=== PATIENT | female | born 1955 | race Asian ===

== ENCOUNTER 2018-03-17 17:33 | Emergency (ER) | END 2018-03-17 22:32 | disposition home or self-care (01) ==

== ENCOUNTER 2019-01-27 08:33 | Emergency (ER) | payer BC ==
[~2019-01-27] VITALS: Ht 152.4 cm; Wt 76.4 kg
[~2019-01-27 08:33] MED LIST: CIPR-193 PO; HYDR-4011 PO; ONDA4TAB8 PO; TAMS-14 PO
[2019-01-27 08:37] VITALS: Ht 152.4 cm; Wt 76.4 kg
[2019-01-27] MEDS ORDERED: ONDANSETRON 4 MG INJ IV STA (08:45)
[2019-01-27] MEDS ORDERED: KETOROLAC 30 MG INJ IV STA (08:45)
[2019-01-27] MEDS ORDERED: morphine 2 MG INJ IV STA (09:40)
[2019-01-27 10:04] VITALS: BP 142/60; PULSE 62; RESP 18
[2019-01-27] MEDS ORDERED: ACET1TAB40 PO (10:04)
--- NOTE | 2019-01-27 10:04 | ERD ---
ER Documentation Chief Complaint Chief Complaint right flank pain sicne 3 am today HPI This is a 63-year-old female with a history of hypertension, diabetes, and previous kidney stones who presents to the ER for evaluation of right-sided flank pain. The patient states that her flank pain started at 3 in the morning and woke up from sleep. She describes as a sharp pain located to the right flank with mild radiation to the groin. She does state that she has noticed her urine has become darker. She does state that she was diagnosed with a kidney stone last year and does have an upcoming appointment with her urologist Dr. Elvira watkins. She states that she saw Dr. Leung previously and he sent her to a seafood packer to get a cardiac clearance for lithotripsy however she states that she has not had follow-up with a urologist since getting cardiac clearance. The patient has been taking Tylenol for her pain without relief and came to the ER today for evaluation. She does have mild associated nausea but denies any fevers chills or vomiting ROS All systems reviewed and are negative except as per history of present illness. Medications Home Meds Active Scripts Tamsulosin Hcl* (Flomax*) 0.4 Mg Cap.er.24h, 0.4 MG PO BID for 5 Days, #10 CAP Prov:SACHA GALAVIZ MD 03/17/18 Ciprofloxacin Hcl* (Ciprofloxacin Hcl*) 250 Mg Tablet, 250 MG PO BID, #14 TAB Prov:SACHA GALAVIZ MD 03/17/18 Ondansetron Hcl* (Zofran*) 4 Mg Tablet, 4 MG PO Q8H PRN for NAUSEA AND/OR VOMITING, #15 TAB Prov:SACHA GALAVIZ MD 03/17/18 Hydrocodone/Acetaminophen ([place] 5-325 Tablet) 1 Each Tablet, 1 TAB PO Q8 PRN for PAIN, #20 TAB Prov:SACHA GALAVIZ MD 03/17/18 Allergies Allergies: Coded Allergies: No Known Drug Allergy (Verified Allergy, Unknown, 07/01/07) PMhx/Soc History of Surgery: Yes (cardiac stent placement) Anesthesia Reaction: No Hx Neurological Disorder: No Hx Respiratory Disorders: No Hx Cardiac Disorders: Yes (CAD) Hx Psychiatric Problems: No Hx Alcohol Use: No Hx Substance Use: No Hx Tobacco Use: No Smoking Status: Never smoker Physical Exam Vitals Vital Signs Date Temp Pulse Resp B/P (MAP) Pulse Ox O2 O2 Flow FiO2 Time Delivery Rate 01/27/19 67 21 21 Room Air 09:49 01/27/19 98.1 64 18 206/79 99 08:37 (121) Physical Exam INITIAL VITAL SIGNS: Reviewed by me GENERAL: The patient is well developed, mild distress HEENT: Pupils equal, round, and reactive to light. EOMI. There is no scleral icterus. NECK: C-spine is soft and supple, there is no meningismus. There is no cervical lymphadenopathy. LUNGS: Clear to auscultation bilaterally. There are no rales, wheezes or rhonchi. HEART: Regular rate and rhythm, no murmurs, clicks, rubs or gallops. ABDOMEN: Right-sided CVAT, soft, non-tender, non-distended. There are bowel thuy nds in all four quadrants. No rebound or guarding. EXTREMITIES: There is no peripheral cyanosis or edema. No focal swelling or erythema. NEUROLOGICAL: The patient moves all four extremities with 5/5 strength. Cranial nerves II - XII are intact. Normal gait. Alert and oriented SKIN: There is no apparent rash or petechiae. HEME/LYMPHATIC: There is no evidence of excessive bruising or lymphedema. PSYCHIATRIC: The patient does not appear anxious or depressed. Result Diagram: 01/27/1914 01/27/19913 Results 24 hrs Laboratory Tests Test 01/27/19 09:14 White Blood Count 9.3 10^3/ul Red Blood Count 3.99 10^6/ul Hemoglobin 11.0 g/dl Hematocrit 35.2 % Mean Corpuscular Volume 88.2 fl Mean Corpuscular Hemoglobin 27.6 pg Mean Corpuscular Hemoglobin Concent 31.3 g/dl Red Cell Distribution Width 14.0 % Platelet Count 225 10^3/UL Mean Platelet Volume 11.0 fl Immature Granulocytes % 1.200 % Neutrophils % 75.2 % Lymphocytes % 17.5 % Monocytes % 5.4 % Eosinophils % 0.3 % Basophils % 0.4 % Nucleated Red Blood Cells % 0.0 /100WBC Immature Granulocytes # 0.110 10^3/ul Neutrophils # 7.0 10^3/ul Lymphocytes # 1.6 10^3/ul Monocytes # 0.5 10^3/ul Eosinophils # 0.0 10^3/ul Basophils # 0.0 10^3/ul Nucleated Red Blood Cells # 0.0 10^3/ul Urine Color YELLOW Urine Clarity SLIGHTLY CLOUDY Urine pH 5.0 Urine Specific [place] 1.016 Urine Ketones TRACE mg/dL Urine Nitrite NEGATIVE mg/dL Urine Bilirubin NEGATIVE mg/dL Urine Urobilinogen NEGATIVE mg/dL Urine Leukocyte Esterase NEGATIVE Reyna/ul Urine Microscopic RBC > 182 /HPF Urine Microscopic WBC 6 /HPF Urine Hemoglobin 3+ mg/dL Urine Glucose 3+ mg/dL Urine Total Protein 1+ mg/dl Sodium Level 137 mmol/L Potassium Level 4.2 mmol/L Chloride Level 99 mmol/L Carbon Dioxide Level 24 mmol/L Anion Gap 14 Blood Urea Nitrogen 15 mg/dl Creatinine 0.90 mg/dl Est Glomerular Filtrat Rate mL/min > 60 mL/min Glucose Level 330 mg/dl Calcium Level 9.3 mg/dl Total Bilirubin 1.0 mg/dl Direct Bilirubin 0.00 mg/dl Indirect Bilirubin 1.0 mg/dl Aspartate Amino Transf (AST/SGOT) 45 IU/L Alanine Aminotransferase (ALT/SGPT) 53 IU/L Alkaline Phosphatase 120 IU/L Total Protein 8.5 g/dl Albumin 4.6 g/dl Globulin 3.90 g/dl Albumin/Globulin Ratio 1.17 Lipase 426 U/L Current Medications Medications Dose Sig/[place] Start Time Status Last (Trade) Ordered Route PRN Stop Time Admin Dose Reason Admin Ketorolac 30 mg ONCE STAT 01/27/19 DC 01/27/19 Tromethamine IV 08:45 09:11 (Toradol) 01/27/19 08:48 Ondansetron 4 mg ONCE STAT 01/27/19 DC 01/27/19 HCl (Zofran IV 08:45 09:11 Inj) 01/27/19 08:48 Morphine 2 mg ONCE STAT 01/27/19 DC 01/27/19 Sulfate IV 09:40 09:47 (morphine) 01/27/19 09:44 Procedures/MDM CT abdomen pelvis without: 1. Moderate right-sided hydroureteronephrosis with a 7 x 5 mm calculus within the right side of the bladder just beyond the ureterovesical junction region presumably representing a recently passed stone. Also noted is a large 14 x 10 mm right renal pelvis calculus which appears to be a nonobstructing. Clinical correlation is necessary. 2. Punctate nonobstructing left lower pole renal calculus. 3. No CT evidence for appendicitis. 4. Extensive coronary artery calcifications. 5. Degenerative changes within the spine. This 63-year-old female presents to the ER for evaluation of right flank pain. She does have a history of kidney stones on the right. She does have a urologist Dr. Leung who she is scheduled to follow-up with next week. On my exam the patient was afebrile however she did appear to be in mild distress. The patient did have right-sided CVAT. The patient was given IV Toradol, IV fluids, Zofran. The patient underwent CT of the abdomen pelvis which does show a large 7 mm stone which is recently passed into the bladder. I do feel that this was the cause of this patient's pain. The patient does states she is feeling better after receiving Toradol however she said her pain had not com pletely resolved. The patient was given 2 mg of IV morphine as well. Her lab work does not reveal any kidney failure, she has no leukocytosis. Urinalysis does reveal hematuria but no significant signs of infection. I have attempted to contact the patient's urologist Dr. Leung and have called the office multiple times with no response. The patient will be discharged at this time with a prescription for Tylenol with codeine for breakthrough pain. She does have Flomax at home and was advised to take the Tylenol with codeine only for severe pain. Departure Diagnosis: Primary Impression: Renal colic on right side Additional Impression: Kidney stone on right side Condition: EILEEN Chaidez DO Jan 27, 2019 10:04
== END 2019-01-27 10:05 | disposition home or self-care (01) ==
LOC: E/R 08:33
DX: N23 Unspecified renal colic (principal); I10 Essential (primary) hypertension; E11.9 Type 2 diabetes mellitus without complications; I25.10 Atherosclerotic heart disease of native coronary artery without angina pectoris; N20.0 Calculus of kidney; Z98.61 Coronary angioplasty status
CPT/HCPCS: 36415; 74176; 80053; 81001; 83690; 85025; 96374; 96375; J1885; J2270; J2405; Z7502

== ENCOUNTER 2019-05-10 10:26 | Day surgery (SDC) | payer BC ==
[~2019-05-10] VITALS: Ht 154.9 cm; Wt 75.7 kg
[2019-05-10] VITALS (11 sets, daily range): BP systolic 70–173; BP diastolic 43–80; PULSE 63–87; RESP 16–22; Ht 154.9 cm; Wt 75.7 kg
[~2019-05-10 10:26] MED LIST changes: +ACET-141 PO; +ACET1TAB40 PO; +ASPI-903 PO; +ATEN50TA PO; +CLOP75TA27 PO; +CYCL10TA7 PO; +FER325 PO; +GLIP5TAB13 PO; +IBUP-1542 PO; +LEVO88TA3 PO; +LOSA50TA14 PO; +METF-849 PO; +SIMV20TA PO
[2019-05-10] MEDS ORDERED: IOHEXOL 300MG/ML 30 ML BTL ONE (11:28)
[2019-05-10] MEDS ORDERED: SOD CHLORIDE 0.9% 1,000 ML IV SCH (11:30)
[2019-05-10] MEDS ORDERED: MIDAZOLAM 1 MG/ML 2 ML INJ ONE (12:00)
[2019-05-10] MEDS ORDERED: PROPOFOL 20 ML ONE (12:00)
[2019-05-10] MEDS ORDERED: MEPERIDINE 25 MG INJ IV PRN (12:00)
[2019-05-10] MEDS ORDERED: DIPHENHYDRAMINE 50 MG INJ IV PRN (12:00)
[2019-05-10] MEDS ORDERED: FENTAnyl 50 MCG/ML VIAL IV PRN ×3 (12:00)
[2019-05-10] MEDS ORDERED: ONDANSETRON 4 MG INJ IV PRN (12:00)
[2019-05-10] MEDS ORDERED: HYDROmorphONE 1 MG/5 ML IV SYRINGE IV PRN ×3 (12:00)
[2019-05-10] MEDS ORDERED: OXYCODONE/ACETAMINOPHEN (5/325) TAB PO PRN ×2 (12:00)
[2019-05-10] MEDS ORDERED: hydrALAzine 20 MG INJ IV PRN (12:00)
[2019-05-10] MEDS ORDERED: ETOMIDATE 20 MG INJ ONE (12:00)
[2019-05-10] MEDS ORDERED: LABETALOL HCL 20MG INJ IV PRN (12:00)
[2019-05-10] MEDS ORDERED: CEFAZOLIN 1 GM INJ ONE (12:00)
[2019-05-10] MEDS ORDERED: METOCLOPRAMIDE 10 MG INJ ONE (12:01)
[2019-05-10] MEDS ORDERED: FENTAnyl 50 MCG/ML VIAL ONE ×2 (12:01→12:55)
== END 2019-05-10 15:50 | disposition home or self-care (01) ==
LOC: SDS 10:26
PROVIDERS: ATTEND Urology
DX: N20.0 Calculus of kidney (principal); I10 Essential (primary) hypertension; I25.10 Atherosclerotic heart disease of native coronary artery without angina pectoris; E11.9 Type 2 diabetes mellitus without complications; E66.9 Obesity, unspecified
CPT/HCPCS: 52356; 74430; 82962; C2617; J0690; J2175; J2250; J2405; J2765; J3010; Q9967; Z7512; Z7610